=== PATIENT | male | born 1955 | race Caucasian/White ===

== ENCOUNTER 2017-02-21 10:36 | Emergency (ER) | payer MEDICAID ==
[~2017-02-21] VITALS: Ht 175.3 cm; Wt 63.5 kg
[2017-02-21 10:36] VITALS: BP_SYST 136
--- NOTE | 2017-02-21 10:38 | NUR ---
Patient triaged and placed in waiting room. VSS and patient appears in no acute distress at this time. Accompanied by SELF, awaiting available bed, and MD notified of need for MSE.
--- NOTE | 2017-02-21 11:56 | NUR ---
Patient to ER bed 7 to gown for evaluation. Side rails up. Report given to Margaret GOMEZ.
--- NOTE | 2017-02-21 12:20 | NUR ---
ER at bedside examining patient.
--- NOTE | 2017-02-21 12:26 | NUR ---
Pt complains of right ear pain for the past 3 weeks with muffled hearing, pt states no discharge, fever or n/v. Pt is able to hear but has difficulty with hearing. No other injuries/complaints per pt or noted.
--- NOTE | 2017-02-21 12:40 | NUR ---
Patient given written and verbal discharge instructions and verbalizes understanding. ER MD discussed with patient the results and treatment provided. Patient in stable condition. ID arm band removed. Rx of bactrim given. Patient educated on pain management and to follow up with PMD. Pain Scale 2. Opportunity for questions provided and answered.
[2017-02-21 12:42] VITALS: BP_SYST 130
== END 2017-02-21 12:42 | disposition home or self-care (01) ==
LOC: SED 10:36
DX: H66.91 Otitis media, unspecified, right ear (principal); Z88.0 Allergy status to penicillin
CPT/HCPCS: 99283

== ENCOUNTER 2018-01-02 16:07 | Emergency (ER) | payer MEDICAID ==
[~2018-01-02] VITALS: Ht 175.3 cm; Wt 70.3 kg
[2018-01-02 16:13] VITALS: BP_SYST 149
[2018-01-02 16:57] LABS: BASOPHILS # (AUTO) 0.1 K/uL (0.0-0.2); BASOPHILS % (AUTO) 1.1 % (0.0-2.0); EOSINOPHILS # (AUTO) 0.1 K/uL (0.0-0.4); EOSINOPHILS % (AUTO) 1.5 % (0.0-4.0); HEMATOCRIT 46.4 % (36-54); HEMOGLOBIN 15.2 g/dL (14.0-18.0); LYMPHOCYTES % (AUTO) 32.2 % (20.5-51.5); MEAN CORPUSCULAR HEMOGLOBIN 30 pg (27-31); MEAN CORPUSCULAR HGB CONC 33 % (32-36); MEAN CORPUSCULAR VOLUME 91 fL (79.0-98.0); MONOCYTES # (AUTO) 0.4 K/uL (0.0-1.0); MONOCYTES % (AUTO) 7.1 % (1.7-9.3); NEUTROPHILS # (AUTO) 3.6 K/uL (1.8-7.7); NEUTROPHILS % (AUTO) 58.1 % (40.0-70.0); PLATELET COUNT (AUTO) 271 K/uL (130-430); RED BLOOD CELL COUNT(AUTO) 5.11 MIL/uL (4.2-6.2); RED CELL DISTRIBUTION WIDTH 15.5 % (9.0-15.0); WHITE BLOOD COUNT (AUTO) 6.2 K/uL (4.8-10.8)
[2018-01-02 17:05] LABS: CALCIUM 9.1 mg/dL (8.4-11.0); CREATININE 1.54 mg/dL (0.55-1.30); POTASSIUM 4.6 mmol/L (3.5-5.1)
[2018-01-02 17:08] LABS: INR 1.1 (0.80-1.20); PROTHROMBIN TIME 11.6 SECS (9.5-12.5)
[2018-01-02 17:09] LABS: ALBUMIN 3.3 g/dL (3.4-4.8); TOTAL BILIRUBIN 0.4 mg/dL (0.0-1.0)
[2018-01-02 18:11] VITALS: BP_SYST 138
== END 2018-01-02 18:11 | disposition home or self-care (01) ==
LOC: SED 16:07
DX: S96.912A Strain of unspecified muscle and tendon at ankle and foot level, left foot, initial encounter (principal); Z88.0 Allergy status to penicillin; X58.XXXA Exposure to other specified factors, initial encounter; Y93.89 Activity, other specified; Y92.89 Other specified places as the place of occurrence of the external cause; Y99.8 Other external cause status
CPT/HCPCS: 36415; 73552; 80053; 85025; 85610-TC; 85730-TC; 93971; 99285

== ENCOUNTER 2019-02-08 12:26 | Emergency (ER) | payer MEDICAID ==
[~2019-02-08] VITALS: Ht 175.3 cm; Wt 74.8 kg
[2019-02-08 12:33] VITALS: BP_SYST 192
--- NOTE | 2019-02-08 12:33 | NUR ---
Placed in room 07 . Placed on groundwater monitoring technician, blood pressure machine and pulse oximeter. To gown for exam. Side rails up. Report given to Margaret GOMEZ.
--- NOTE | 2019-02-08 12:38 | NUR ---
Patient arrived in the ED c/o right flank pain, chills, dysuria, cloudy urine for 3 days now. Negative for hematuria and fevers. Patient is alert and oriented to name, time, place and event. VS showed elevated BP and tachycardia, pain severity 710 - Took Ibuprofen 800mg at 1215 today. Patient denied any signs and symptoms of respiratory distress at this time. Patient is sitting up in bed, awake and alert, speaking in full sentences. Instructed patient to notify ED staff if symptoms worsen while waiting to be seen by a provider. Patient verbalized understanding.
--- NOTE | 2019-02-08 12:40 | NUR ---
Urine specimen collected and dropped off at the lab.
--- NOTE | 2019-02-08 12:45 | NUR ---
ER Dr. Stephens at bedside examining patient.
[2019-02-08] MEDS ORDERED: NACL 0.9% 1,000 ML IV ONE (12:48)
[2019-02-08] MEDS ORDERED: ONDANSETRON HCL 4 MG/2 ML VIAL IVP ONE (13:00)
[2019-02-08] MEDS ORDERED: KETOROLAC TROMETHAMINE 30 MG VIAL IVP ONE (13:00)
--- NOTE | 2019-02-08 13:15 | NUR ---
# 20 gauge angiocath placed to LAC. Use of asceptic technique. Opsite placed over site. Blood return noted. Blood for lab drawn from site. Flushed with 10 cc of normal saline. No evidence of infiltration noted. Patient tolerated well.
--- NOTE | 2019-02-08 13:20 | NUR ---
Patient is off the unit for CT. Patient is in stable condition.
[2019-02-08 13:23] LABS: BASOPHILS # (AUTO) 0.1 K/uL (0.0-0.2); BASOPHILS % (AUTO) 0.4 % (0.0-2.0); EOSINOPHILS % (AUTO) 0.3 % (0.0-4.0); HEMATOCRIT 43.9 % (36-54); HEMOGLOBIN 15.3 g/dL (14.0-18.0); LYMPHOCYTES # (AUTO) 1.1 K/uL (1.0-5.5); LYMPHOCYTES % (AUTO) 7.3 % (20.5-51.5); MEAN CORPUSCULAR HEMOGLOBIN 33 pg (27-31); MEAN CORPUSCULAR HGB CONC 35 % (32-36); MEAN CORPUSCULAR VOLUME 94 fL (79.0-98.0); MONOCYTES # (AUTO) 0.8 K/uL (0.0-1.0); NEUTROPHILS # (AUTO) 13.4 K/uL (1.8-7.7); PLATELET COUNT (AUTO) 245 K/uL (130-430); RED BLOOD CELL COUNT(AUTO) 4.67 MIL/uL (4.2-6.2); WHITE BLOOD COUNT (AUTO) 15.4 K/uL (4.8-10.8)
[2019-02-08 13:25] LABS: BILIRUBIN,URINE NEGATIVE (NEGATIVE); BLOOD, URINE 3+ (NEGATIVE); CLARITY/URINE TURBID (CLEAR); COLOR,URINE YELLOW (YELLOW); GLUCOSE,URINE NEGATIVE (NEGATIVE); KETONES,URINE NEGATIVE (NEGATIVE); LEUKOCYTE ESTERASE ,URINE 3+ (NEGATIVE); NITRITE, URINE POSITIVE (NEGATIVE); PH,URINE 6.5 (5.0-8.0); PROTEIN URINE 2+ (NEGATIVE)
--- NOTE | 2019-02-08 13:46 | NUR ---
Patient is resting comfortably in bed. Respirations even and unlabored.
--- NOTE | 2019-02-08 13:51 | NUR ---
Patient stated 0/10 pain right now, hold off on Toradol 30mg IVP per Dr. Stephens. Will reassess later. Ibuprofen 800mg taken at 1145 today per patient.
[2019-02-08 14:01] LABS: BACTERIA,URINE MANY /HPF (None Seen); RBC,URINE 20-50 /HPF (0-3); WBC,URINE 50-80 /HPF (0-3)
[2019-02-08] MEDS ORDERED: NOR10 PO (14:02)
[2019-02-08] MEDS ORDERED: BICT1TAB PO (14:02)
--- NOTE | 2019-02-08 14:03 | NUR ---
Medication reconciliation completed with information provided by patient. Any prior medication reconciliation on file was reviewed and corrected.
--- NOTE | 2019-02-08 14:06 | NUR ---
Full code per patient. Patient belonging list completed.
[2019-02-08] MEDS ORDERED: DOXYCYCLINE HYCLATE 100 MG CAPSULE PO ONE (14:15)
--- NOTE | 2019-02-08 14:40 | NUR ---
Administered Vibramycin 100mg PO as ordered by Dr. Stephens. Patient tolerated the medication well.
[2019-02-08 14:47] VITALS: BP_SYST 192
--- NOTE | 2019-02-08 14:48 | NUR ---
Patient given written and verbal discharge instructions and verbalizes understanding. ER MD discussed with patient the results and treatment provided. Patient in stable condition. ID arm band removed. IV catheter removed intact and dressing applied, no active bleeding. Rx of Vibramycin 100mg given. Patient educated on pain management and to follow up with PMD. Pain Scale 0/10. Opportunity for questions provided and answered. Medication side effect fact sheet provided.
--- NOTE | 2019-02-11 07:28 | NUR ---
RECEIVED +URINE CULTURE FROM LAB AND DISCUSSED CASE WITH DR PACE. NO FURTHER ACTIONS NEEDED PER DR PACE
== END 2019-02-08 14:48 | disposition home or self-care (01) ==
LOC: SED 12:26
DX: S39.011A Strain of muscle, fascia and tendon of abdomen, initial encounter (principal); N39.0 Urinary tract infection, site not specified; K42.9 Umbilical hernia without obstruction or gangrene; Z88.0 Allergy status to penicillin; X50.9XXA Other and unspecified overexertion or strenuous movements or postures, initial encounter; Y93.89 Activity, other specified; Y92.89 Other specified places as the place of occurrence of the external cause; Y99.8 Other external cause status
CPT/HCPCS: 36415; 74176; 81000; 85025; 87040; 87086; 87186; 99284; J7030

== ENCOUNTER 2021-10-20 16:37 | Inpatient (IN) | payer MEDICAID ==
[~2021-10-20] VITALS: Ht 175.3 cm; Wt 93.4 kg
[~2021-10-20 16:37] MED LIST: BICT1TAB PO; NOR10 PO
[2021-10-20 16:46] VITALS: BP_SYST 125
[2021-10-20] MEDS ORDERED: iohexoL 350 mgI/mL, 100 ML INFUS..BTL IV ONE (17:51)
[2021-10-20 18:28] LABS: BASOPHILS # (AUTO) 0.1 K/uL (0.0-0.2); BASOPHILS % (AUTO) 1.8 % (0.0-2.0); EOSINOPHILS # (AUTO) 0.1 K/uL (0.0-0.4); EOSINOPHILS % (AUTO) 1.4 % (0.0-4.0); HEMATOCRIT 43.4 % (36-54); HEMOGLOBIN 14.8 g/dL (14.0-18.0); LYMPHOCYTES # (AUTO) 1.6 K/uL (1.0-5.5); LYMPHOCYTES % (AUTO) 26.3 % (20.5-51.5); MEAN CORPUSCULAR HEMOGLOBIN 31 pg (27-31); MEAN CORPUSCULAR HGB CONC 34 % (32-36); MEAN CORPUSCULAR VOLUME 92 fL (79.0-98.0); MONOCYTES # (AUTO) 0.5 K/uL (0.0-1.0); MONOCYTES % (AUTO) 8.6 % (1.7-9.3); NEUTROPHILS # (AUTO) 3.8 K/uL (1.8-7.7); NEUTROPHILS % (AUTO) 61.9 % (40.0-70.0); PLATELET COUNT (AUTO) 189 K/uL (130-430); RED BLOOD CELL COUNT(AUTO) 4.71 MIL/uL (4.2-6.2); RED CELL DISTRIBUTION WIDTH 16.2 % (9.0-15.0); WHITE BLOOD COUNT (AUTO) 6.2 K/uL (4.8-10.8)
[2021-10-20 18:41] LABS: ANION GAP 13 (5-15); CALCIUM 9.4 mg/dL (8.4-11.0); CHLORIDE 102 mmol/L (98-107); CREATININE 0.92 mg/dL (0.55-1.30); GLUCOSE 99 mg/dL (70-99); POTASSIUM 3.4 mmol/L (3.5-5.1); SODIUM SERUM 135 mmol/L (136-145); UREA NITROGEN, BLOOD 23 mg/dL (8-21)
[2021-10-20 18:44] LABS: GFR AFRICAN AMERICAN 107 mL/min (>90)
[2021-10-20] MEDS ORDERED: NITROGLYCERIN 0.4 MG TAB.SUBL SL ONE (18:45)
[2021-10-20] MEDS ORDERED: MAGNESIUM SULFATE/D5W 100 ML IV ONE (18:45)
[2021-10-20] MEDS ORDERED: FUROSEMIDE 40 MG/4 ML VIAL IVP ONE (18:45)
[2021-10-20 18:49] LABS: ALANINE AMINOTRANSFERASE 22 U/L (12-78); ALBUMIN 3.1 g/dL (3.4-4.8); ASPARTATE AMINOTRANSFERASE 20 U/L (10-37); TOTAL BILIRUBIN 1.4 mg/dL (0.0-1.0)
[2021-10-20 18:50] LABS: INR 1.3 (0.80-1.20); PROTHROMBIN TIME 12.7 SECS (9.5-12.5)
[2021-10-20] MEDS ORDERED: HYDR12.55 PO (19:03)
[2021-10-20] MEDS ORDERED: BICT1TAB3 PO (19:03)
[2021-10-20] MEDS ORDERED: IPRATROPIUM/ALBUTEROL SULFATE 3 ML AMPUL.NEB (DUONEB) INH ONE (19:45)
[2021-10-20 21:48] LABS: BILIRUBIN,URINE NEGATIVE (NEGATIVE); BLOOD, URINE NEGATIVE (NEGATIVE); CLARITY/URINE CLEAR (CLEAR); COLOR,URINE YELLOW (YELLOW); GLUCOSE,URINE NEGATIVE (NEGATIVE); KETONES,URINE NEGATIVE (NEGATIVE); LEUKOCYTE ESTERASE ,URINE NEGATIVE (NEGATIVE); NITRITE, URINE NEGATIVE (NEGATIVE); PH,URINE 5.5 (5.0-8.0); PROTEIN URINE NEGATIVE (NEGATIVE)
[2021-10-20 23:53] VITALS: BP_SYST 135
[2021-10-21] VITALS: BP_SYST 127
[2021-10-21 08:00] VITALS: BP_SYST 108; BP_SYST 128
[2021-10-21] MEDS ORDERED: ONDANSETRON HCL 4 MG/2 ML VIAL IVP PRN (08:45)
[2021-10-21] MEDS ORDERED: NALOXONE HCL 0.4 MG/ML AMP (NARCAN) IVP PRN ×2 (08:45)
[2021-10-21] MEDS ORDERED: HYDROcodone/ACETAMIN 5-325 MG TAB (NORCO/ VICODIN) PO PRN (08:45)
[2021-10-21] MEDS ORDERED: ACETAMINOPHEN 325 MG TABLET PO PRN (08:45)
[2021-10-21] MEDS ORDERED: amLODIPine BESYLATE 5 MG TABLET PO SCH (09:00)
[2021-10-21] MEDS ORDERED: HYDROCHLOROTHIAZIDE 12.5 MG CAPSULE (HCTZ) PO SCH ×2 (09:00→12:41)
[2021-10-21] MEDS: FUROSEMIDE 20 MG/2 ML VIAL IVP SCH ×2 (09:34→21:51)
[2021-10-21 12:15] VITALS: BP_SYST 119
[2021-10-21] MEDS: NORMAL SALINE 5 ML DISP.SYRIN IVF SCH ×2 (14:00→23:11)
[2021-10-21 16:00] VITALS: BP_SYST 132
[2021-10-21 20:00] VITALS: BP_SYST 115
[2021-10-21] MEDS ORDERED: CARVEDILOL 6.25 MG TABLET (COREG) PO SCH (22:49)
[2021-10-21] MEDS ORDERED: CARVEDILOL 6.25 MG TABLET (COREG) ONE (23:09)
[2021-10-22] MEDS: LORazepam 2 MG/ML VIAL IVP PRN ×2 (03:02→22:45)
[2021-10-22 07:05] LABS: BASOPHILS % (AUTO) 0.4 % (0.0-2.0); EOSINOPHILS # (AUTO) 0.2 K/uL (0.0-0.4); EOSINOPHILS % (AUTO) 2.2 % (0.0-4.0); HEMATOCRIT 42.7 % (36-54); HEMOGLOBIN 14.5 g/dL (14.0-18.0); LYMPHOCYTES # (AUTO) 1.1 K/uL (1.0-5.5); LYMPHOCYTES % (AUTO) 13.8 % (20.5-51.5); MEAN CORPUSCULAR HEMOGLOBIN 31 pg (27-31); MEAN CORPUSCULAR HGB CONC 34 % (32-36); MEAN CORPUSCULAR VOLUME 92 fL (79.0-98.0); MONOCYTES # (AUTO) 0.5 K/uL (0.0-1.0); MONOCYTES % (AUTO) 6.1 % (1.7-9.3); NEUTROPHILS % (AUTO) 77.5 % (40.0-70.0); PLATELET COUNT (AUTO) 192 K/uL (130-430); RED BLOOD CELL COUNT(AUTO) 4.64 MIL/uL (4.2-6.2); WHITE BLOOD COUNT (AUTO) 7.7 K/uL (4.8-10.8)
[2021-10-22 07:28] LABS: CALCIUM 8.8 mg/dL (8.4-11.0); CREATININE 1.18 mg/dL (0.55-1.30); PHOSPHORUS 3.9 mg/dL (2.7-4.5); POTASSIUM 3.6 mmol/L (3.5-5.1)
[2021-10-22 07:52] VITALS: BP_SYST 101
[2021-10-22 08:00] VITALS: BP_SYST 107
[2021-10-22] MEDS: NORMAL SALINE 5 ML DISP.SYRIN IVF SCH ×3 (08:00→22:00)
[2021-10-22] MEDS: CARVEDILOL 12.5 MG TABLET (COREG) PO SCH ×2 (08:46→21:06)
[2021-10-22] MEDS: APIXABAN 2.5 MG TABLET PO SCH ×2 (08:48→21:08)
[2021-10-22] MEDS: FUROSEMIDE 20 MG/2 ML VIAL IVP SCH ×2 (08:49→21:07)
[2021-10-22 09:21] LABS: BARBITURATE, URINE NEGATIVE (NEG <=200)
[2021-10-22 09:22] LABS: BENZODIAZEPINE, URINE NEGATIVE (NEG <=150); CANNABINOID, URINE NEGATIVE (NEG <=50); COCAINE, URINE NEGATIVE (NEG <=150); METHAMPHETAMINES SCREEN,URINE POSITIVE (NEG <=500); OPIATE, URINE NEGATIVE (NEG <=100); PHENCYCLIDINE SCREEN,URINE NEGATIVE (NEG <=25); UR TRICYCLIC ANTIDEPRESSANTS NEGATIVE (NEG <=300); URINE AMPHETAMINE POSITIVE (NEG <=500); URINE METHADONE NEGATIVE (NEG <=200); URINE OXYCODONE SCREEN NEGATIVE (NEG <=100); URINE PROPOXYPHENE SCREEN NEGATIVE (NEG <=300)
[2021-10-22 12:00] VITALS: BP_SYST 106
[2021-10-22 20:00] VITALS: BP_SYST 108; BP_SYST 115
[2021-10-23] MEDS: LORazepam 2 MG/ML VIAL IVP PRN ×2 (05:21→22:00)
[2021-10-23] MEDS: NORMAL SALINE 5 ML DISP.SYRIN IVF SCH ×3 (06:22→22:02)
[2021-10-23 07:45] VITALS: BP_SYST 106
[2021-10-23 08:25] VITALS: BP_SYST 106
[2021-10-23 09:04] LABS: BASOPHILS % (AUTO) 0.5 % (0.0-2.0); EOSINOPHILS # (AUTO) 0.2 K/uL (0.0-0.4); EOSINOPHILS % (AUTO) 2.9 % (0.0-4.0); HEMATOCRIT 42.6 % (36-54); HEMOGLOBIN 14.5 g/dL (14.0-18.0); LYMPHOCYTES # (AUTO) 1.4 K/uL (1.0-5.5); MEAN CORPUSCULAR HEMOGLOBIN 31 pg (27-31); MEAN CORPUSCULAR HGB CONC 34 % (32-36); MEAN CORPUSCULAR VOLUME 92 fL (79.0-98.0); MONOCYTES # (AUTO) 0.4 K/uL (0.0-1.0); MONOCYTES % (AUTO) 7.5 % (1.7-9.3); NEUTROPHILS # (AUTO) 3.9 K/uL (1.8-7.7); NEUTROPHILS % (AUTO) 66.1 % (40.0-70.0); PLATELET COUNT (AUTO) 200 K/uL (130-430); RED BLOOD CELL COUNT(AUTO) 4.63 MIL/uL (4.2-6.2); RED CELL DISTRIBUTION WIDTH 15.8 % (9.0-15.0); WHITE BLOOD COUNT (AUTO) 5.9 K/uL (4.8-10.8)
[2021-10-23] MEDS: APIXABAN 2.5 MG TABLET PO SCH ×2 (09:04→20:29)
[2021-10-23] MEDS: FUROSEMIDE 20 MG/2 ML VIAL IVP SCH ×2 (09:05→20:30)
[2021-10-23] MEDS: CARVEDILOL 12.5 MG TABLET (COREG) PO SCH ×2 (09:06→20:28)
[2021-10-23 09:20] LABS: ALBUMIN 3.1 g/dL (3.4-4.8); CALCIUM 8.9 mg/dL (8.4-11.0); CREATININE 1.34 mg/dL (0.55-1.30); POTASSIUM 3.8 mmol/L (3.5-5.1); TOTAL BILIRUBIN 1.4 mg/dL (0.0-1.0)
[2021-10-23 12:00] VITALS: BP_SYST 112
[2021-10-23] MEDS: HYDROcodone/ACETAMIN 10-325 MG TAB PO PRN (13:23)
[2021-10-23 16:52] VITALS: BP_SYST 108
[2021-10-23 20:01] VITALS: BP_SYST 105
[2021-10-24] VITALS: BP_SYST 96
[2021-10-24] MEDS: NORMAL SALINE 5 ML DISP.SYRIN IVF SCH ×3 (05:10→21:01)
[2021-10-24 07:48] LABS: CALCIUM 9.1 mg/dL (8.4-11.0); CREATININE 1.24 mg/dL (0.55-1.30); PHOSPHORUS 4.3 mg/dL (2.7-4.5); POTASSIUM 3.5 mmol/L (3.5-5.1)
[2021-10-24 07:49] LABS: BASOPHILS % (AUTO) 0.4 % (0.0-2.0); EOSINOPHILS # (AUTO) 0.1 K/uL (0.0-0.4); EOSINOPHILS % (AUTO) 1.3 % (0.0-4.0); HEMOGLOBIN 14.7 g/dL (14.0-18.0); LYMPHOCYTES # (AUTO) 1.1 K/uL (1.0-5.5); LYMPHOCYTES % (AUTO) 19.1 % (20.5-51.5); MEAN CORPUSCULAR HEMOGLOBIN 31 pg (27-31); MEAN CORPUSCULAR HGB CONC 34 % (32-36); MEAN CORPUSCULAR VOLUME 92 fL (79.0-98.0); MONOCYTES # (AUTO) 0.4 K/uL (0.0-1.0); MONOCYTES % (AUTO) 6.9 % (1.7-9.3); NEUTROPHILS # (AUTO) 4.3 K/uL (1.8-7.7); NEUTROPHILS % (AUTO) 72.3 % (40.0-70.0); PLATELET COUNT (AUTO) 214 K/uL (130-430); RED BLOOD CELL COUNT(AUTO) 4.67 MIL/uL (4.2-6.2); RED CELL DISTRIBUTION WIDTH 16.2 % (9.0-15.0); WHITE BLOOD COUNT (AUTO) 5.9 K/uL (4.8-10.8)
[2021-10-24 08:00] VITALS: BP_SYST 121
[2021-10-24] MEDS ORDERED: FUROSEMIDE 40 MG/4 ML VIAL IVP SCH (09:00)
[2021-10-24] MEDS: APIXABAN 2.5 MG TABLET PO SCH ×2 (09:55→20:26)
[2021-10-24] MEDS: CARVEDILOL 12.5 MG TABLET (COREG) PO SCH ×2 (09:57→20:27)
[2021-10-24] MEDS: LORazepam 2 MG/ML VIAL IVP PRN ×2 (10:31→20:26)
[2021-10-24 12:00] VITALS: BP_SYST 119
[2021-10-24] MEDS: HYDROcodone/ACETAMIN 10-325 MG TAB PO PRN (12:10)
[2021-10-24 17:00] VITALS: BP_SYST 115
[2021-10-24] MEDS ORDERED: POTASSIUM CHLORIDE 10 MEQ TAB.PRT.SR PO ONE (18:00)
[2021-10-24 20:00] VITALS: BP_SYST 110
[2021-10-25] VITALS (7 sets, daily range): BP systolic 115–130
[2021-10-25] MEDS: LORazepam 2 MG/ML VIAL IVP PRN ×4 (00:44→21:21)
[2021-10-25] MEDS ORDERED: LORazepam 2 MG/ML VIAL IVP ONE (03:15)
[2021-10-25] MEDS: NORMAL SALINE 5 ML DISP.SYRIN IVF SCH ×2 (05:04→21:24)
[2021-10-25] MEDS: ALBUTEROL SULFATE 0.083% 2.5 MG/3 ML VIAL.NEB INH SCH ×6 (07:00→23:57)
[2021-10-25] MEDS ORDERED: FUROSEMIDE 40 MG/4 ML VIAL IVP SCH (09:00)
[2021-10-25] MEDS: CARVEDILOL 12.5 MG TABLET (COREG) PO SCH ×2 (09:39→20:17)
[2021-10-25] MEDS: APIXABAN 2.5 MG TABLET PO SCH ×2 (09:41→20:18)
[2021-10-25 11:24] LABS: BASOPHILS % (AUTO) 0.4 % (0.0-2.0); EOSINOPHILS % (AUTO) 0.4 % (0.0-4.0); HEMATOCRIT 44.6 % (36-54); HEMOGLOBIN 15.2 g/dL (14.0-18.0); LYMPHOCYTES # (AUTO) 1.2 K/uL (1.0-5.5); LYMPHOCYTES % (AUTO) 17.1 % (20.5-51.5); MEAN CORPUSCULAR HEMOGLOBIN 31 pg (27-31); MEAN CORPUSCULAR HGB CONC 34 % (32-36); MEAN CORPUSCULAR VOLUME 92 fL (79.0-98.0); MONOCYTES # (AUTO) 0.7 K/uL (0.0-1.0); MONOCYTES % (AUTO) 9.5 % (1.7-9.3); NEUTROPHILS # (AUTO) 5.3 K/uL (1.8-7.7); NEUTROPHILS % (AUTO) 72.6 % (40.0-70.0); PLATELET COUNT (AUTO) 211 K/uL (130-430); RED BLOOD CELL COUNT(AUTO) 4.84 MIL/uL (4.2-6.2); RED CELL DISTRIBUTION WIDTH 15.6 % (9.0-15.0); WHITE BLOOD COUNT (AUTO) 7.3 K/uL (4.8-10.8)
[2021-10-25 11:33] LABS: CALCIUM 9.3 mg/dL (8.4-11.0); CREATININE 1.41 mg/dL (0.55-1.30); POTASSIUM 4.1 mmol/L (3.5-5.1)
[2021-10-25 11:39] LABS: ALBUMIN 3.3 g/dL (3.4-4.8); PHOSPHORUS 4.5 mg/dL (2.7-4.5); TOTAL BILIRUBIN 1.7 mg/dL (0.0-1.0)
[2021-10-25] MEDS: HYDROcodone/ACETAMIN 10-325 MG TAB PO PRN (23:44)
[2021-10-26] MEDS: LORazepam 2 MG/ML VIAL IVP PRN (01:58)
[2021-10-26] MEDS: ALBUTEROL SULFATE 0.083% 2.5 MG/3 ML VIAL.NEB INH SCH ×6 (03:00→23:57)
[2021-10-26 04:00] VITALS: BP_SYST 130
[2021-10-26] MEDS: NORMAL SALINE 5 ML DISP.SYRIN IVF SCH ×2 (05:33→21:26)
[2021-10-26] MEDS: FUROSEMIDE 40 MG/4 ML VIAL IVP SCH (08:55)
[2021-10-26] MEDS: CARVEDILOL 12.5 MG TABLET (COREG) PO SCH ×2 (08:56→21:23)
[2021-10-26 08:57] LABS: BASOPHILS % (AUTO) 0.5 % (0.0-2.0); EOSINOPHILS # (AUTO) 0.1 K/uL (0.0-0.4); EOSINOPHILS % (AUTO) 0.7 % (0.0-4.0); HEMOGLOBIN 14.5 g/dL (14.0-18.0); MEAN CORPUSCULAR HEMOGLOBIN 32 pg (27-31); MEAN CORPUSCULAR HGB CONC 34 % (32-36); MEAN CORPUSCULAR VOLUME 93 fL (79.0-98.0); MONOCYTES # (AUTO) 1.2 K/uL (0.0-1.0); MONOCYTES % (AUTO) 14.3 % (1.7-9.3); NEUTROPHILS # (AUTO) 5.1 K/uL (1.8-7.7); NEUTROPHILS % (AUTO) 60.5 % (40.0-70.0); PLATELET COUNT (AUTO) 214 K/uL (130-430); RED BLOOD CELL COUNT(AUTO) 4.61 MIL/uL (4.2-6.2); RED CELL DISTRIBUTION WIDTH 16.1 % (9.0-15.0); WHITE BLOOD COUNT (AUTO) 8.4 K/uL (4.8-10.8)
[2021-10-26] MEDS: APIXABAN 2.5 MG TABLET PO SCH ×2 (09:01→21:24)
[2021-10-26] MEDS: BIKTARVY PO SCH (09:04)
[2021-10-26 09:08] LABS: ALBUMIN 3.1 g/dL (3.4-4.8); CALCIUM 9.1 mg/dL (8.4-11.0); CREATININE 1.73 mg/dL (0.55-1.30); PHOSPHORUS 5.4 mg/dL (2.7-4.5); POTASSIUM 4.9 mmol/L (3.5-5.1); TOTAL BILIRUBIN 1.8 mg/dL (0.0-1.0)
[2021-10-26 11:27] VITALS: BP_SYST 131
[2021-10-26 15:36] VITALS: BP_SYST 121
[2021-10-26 20:35] VITALS: BP_SYST 113
[2021-10-27] VITALS (14 sets, daily range): BP systolic 81–133
[2021-10-27] MEDS: ALBUTEROL SULFATE 0.083% 2.5 MG/3 ML VIAL.NEB INH SCH ×6 (02:50→22:45)
[2021-10-27] MEDS: NORMAL SALINE 5 ML DISP.SYRIN IVF SCH ×2 (06:38→10:06)
[2021-10-27 06:53] LABS: BASOPHILS % (AUTO) 0.5 % (0.0-2.0); EOSINOPHILS % (AUTO) 0.6 % (0.0-4.0); HEMATOCRIT 42.5 % (36-54); HEMOGLOBIN 14.6 g/dL (14.0-18.0); LYMPHOCYTES # (AUTO) 1.3 K/uL (1.0-5.5); LYMPHOCYTES % (AUTO) 16.8 % (20.5-51.5); MEAN CORPUSCULAR HEMOGLOBIN 32 pg (27-31); MEAN CORPUSCULAR HGB CONC 34 % (32-36); MEAN CORPUSCULAR VOLUME 92 fL (79.0-98.0); MONOCYTES # (AUTO) 0.7 K/uL (0.0-1.0); MONOCYTES % (AUTO) 9.2 % (1.7-9.3); NEUTROPHILS # (AUTO) 5.5 K/uL (1.8-7.7); NEUTROPHILS % (AUTO) 72.9 % (40.0-70.0); PLATELET COUNT (AUTO) 215 K/uL (130-430); RED BLOOD CELL COUNT(AUTO) 4.62 MIL/uL (4.2-6.2); RED CELL DISTRIBUTION WIDTH 16.3 % (9.0-15.0); WHITE BLOOD COUNT (AUTO) 7.6 K/uL (4.8-10.8)
[2021-10-27 08:09] LABS: CREATININE 1.99 mg/dL (0.55-1.30); PHOSPHORUS 5.2 mg/dL (2.7-4.5); POTASSIUM 3.6 mmol/L (3.5-5.1)
[2021-10-27] MEDS: FUROSEMIDE 40 MG/4 ML VIAL IVP SCH (09:24)
[2021-10-27] MEDS: CARVEDILOL 12.5 MG TABLET (COREG) PO SCH ×2 (09:24→20:55)
[2021-10-27] MEDS: APIXABAN 2.5 MG TABLET PO SCH ×2 (09:34→20:58)
[2021-10-27] MEDS: THIAMINE HCL 100 MG TABLET PO SCH (09:35)
[2021-10-27] MEDS: BIKTARVY PO SCH (10:05)
[2021-10-27] MEDS ORDERED: MIDAZOLAM HCL 5 MG/5 ML VIAL ONE ×2 (11:52→11:55)
[2021-10-27] MEDS ORDERED: VECURONIUM BROMIDE 10 MG/VIAL (NORCURON) IV ONE (14:28)
[2021-10-27] MEDS ORDERED: ROCURONIUM BROMIDE 10 MG/ML (ZEMURON) IV ONE (14:28)
[2021-10-27] MEDS ORDERED: SUCCINYLCHOLINE CHLORIDE 20 MG/ML(QUELICIN) IVP ONE (14:28)
[2021-10-27] MEDS ORDERED: ETOMIDATE 20 MG/ 10 ML VIAL (AMIDATE) IVP ONE (14:28)
[2021-10-27] MEDS ORDERED: NALOXONE HCL 0.4 MG/ML AMP (NARCAN) IVP PRN (14:30)
[2021-10-27] MEDS ORDERED: NOREPINEPHRINE BITARTRATE 4 MG in NS 246 ML IV PRN (14:30)
[2021-10-27] MEDS ORDERED: NOREPINEPHRINE 4 MG/4 ML VIAL IV ONE ×3 (15:09→19:20)
[2021-10-27] MEDS ORDERED: PROPOFOL DRIP 100 ML IV ONE (16:05)
[2021-10-27] MEDS: MIDAZOLAM IN NACL,ISO-OSMOT/PF 100 ML IV PRN (17:42)
[2021-10-27] MEDS: LORazepam 2 MG/ML VIAL IVP PRN (17:49)
[2021-10-27] MEDS: MORPHINE SULFATE IN 0.9 % NACL 100 ML IV PRN (17:52)
[2021-10-27] MEDS ORDERED: COMMUNICATION ORDER XX ONE (19:00)
[2021-10-27 20:19] LABS: CALCIUM 8.8 mg/dL (8.4-11.0); CREATININE 2.38 mg/dL (0.55-1.30)
[2021-10-27] MEDS: NOREPINEPHRINE BITARTRATE 16 MG in NS 234 ML IV PRN (21:02)
[2021-10-27 23:15] LABS: BILIRUBIN,URINE 2+ (NEGATIVE); BLOOD, URINE 3+ (NEGATIVE); CLARITY/URINE SL CLOUDY (CLEAR); COLOR,URINE YELLOW (YELLOW); GLUCOSE,URINE NEGATIVE (NEGATIVE); KETONES,URINE NEGATIVE (NEGATIVE); LEUKOCYTE ESTERASE ,URINE NEGATIVE (NEGATIVE); NITRITE, URINE NEGATIVE (NEGATIVE); PROTEIN URINE 1+ (NEGATIVE)
[2021-10-28] VITALS (33 sets, daily range): BP systolic 57–130
[2021-10-28] MEDS: NORMAL SALINE 5 ML DISP.SYRIN IVF SCH ×2 (00:12→04:48)
[2021-10-28 00:14] LABS: BACTERIA,URINE None Seen /HPF (None Seen)
[2021-10-28] MEDS: NOREPINEPHRINE BITARTRATE 16 MG in NS 234 ML IV PRN ×4 (03:29→23:55)
[2021-10-28] MEDS: ALBUTEROL SULFATE 0.083% 2.5 MG/3 ML VIAL.NEB INH SCH ×6 (03:56→23:45)
[2021-10-28] MEDS: MORPHINE SULFATE IN 0.9 % NACL 100 ML IV PRN ×2 (04:53→17:37)
[2021-10-28 06:28] LABS: BASOPHILS # (AUTO) 0.1 K/uL (0.0-0.2); BASOPHILS % (AUTO) 0.6 % (0.0-2.0); EOSINOPHILS # (AUTO) 0.1 K/uL (0.0-0.4); EOSINOPHILS % (AUTO) 0.5 % (0.0-4.0); HEMATOCRIT 46.3 % (36-54); HEMOGLOBIN 15.8 g/dL (14.0-18.0); LYMPHOCYTES # (AUTO) 2.6 K/uL (1.0-5.5); MEAN CORPUSCULAR HEMOGLOBIN 32 pg (27-31); MEAN CORPUSCULAR HGB CONC 34 % (32-36); MEAN CORPUSCULAR VOLUME 93 fL (79.0-98.0); MONOCYTES # (AUTO) 1.4 K/uL (0.0-1.0); MONOCYTES % (AUTO) 11.1 % (1.7-9.3); NEUTROPHILS # (AUTO) 8.3 K/uL (1.8-7.7); NEUTROPHILS % (AUTO) 66.8 % (40.0-70.0); PLATELET COUNT (AUTO) 337 K/uL (130-430); RED BLOOD CELL COUNT(AUTO) 4.98 MIL/uL (4.2-6.2); RED CELL DISTRIBUTION WIDTH 16.2 % (9.0-15.0)
[2021-10-28 06:34] LABS: ALBUMIN 2.7 g/dL (3.4-4.8); CALCIUM 8.3 mg/dL (8.4-11.0); CREATININE 2.48 mg/dL (0.55-1.30); PHOSPHORUS 6.4 mg/dL (2.7-4.5); POTASSIUM 4.5 mmol/L (3.5-5.1); TOTAL BILIRUBIN 2.8 mg/dL (0.0-1.0)
[2021-10-28 07:57] LABS: WHITE BLOOD COUNT (AUTO) 12.4 K/uL (4.8-10.8)
[2021-10-28] MEDS: CARVEDILOL 12.5 MG TABLET (COREG) PO SCH ×2 (09:09→21:00)
[2021-10-28] MEDS: FUROSEMIDE 40 MG/4 ML VIAL IVP SCH (09:09)
[2021-10-28] MEDS: THIAMINE HCL 100 MG TABLET PO SCH (09:09)
[2021-10-28] MEDS: BIKTARVY PO SCH (09:10)
[2021-10-28] MEDS: APIXABAN 2.5 MG TABLET PO SCH ×2 (09:10→21:00)
[2021-10-28] MEDS ORDERED: VASOPRESSIN 40 UNITS in NS 38 ML IV PRN (10:45)
[2021-10-28] MEDS: D5NS 1,000 ML IV SCH ×2 (10:58→22:31)
[2021-10-28] MEDS: VASOPRESSIN 20 UNITS in NS 99 ML IV PRN (11:09)
[2021-10-28] MEDS ORDERED: LEVOFLOXACIN 250 MG/D5W 50 ML IV SCH (13:00)
[2021-10-28] MEDS ORDERED: VANCOMYCIN HCL 1,000 MG in NS 250 ML IV ONE (14:30)
[2021-10-28] MEDS: METHYLPREDNISOLONE SOD SUCC 40 MG/ML VIAL IVP SCH ×2 (17:32→23:47)
[2021-10-28] MEDS: MIDAZOLAM IN NACL,ISO-OSMOT/PF 100 ML IV PRN (17:34)
[2021-10-28] MEDS: PHENYLEPHRINE HCL 50 MG in NS 245 ML IV PRN (22:30)
[2021-10-29] VITALS (29 sets, daily range): BP systolic 70–121
[2021-10-29] MEDS: ALBUTEROL SULFATE 0.083% 2.5 MG/3 ML VIAL.NEB INH SCH ×3 (03:05→11:27)
[2021-10-29] MEDS: PHENYLEPHRINE HCL 50 MG in NS 245 ML IV PRN (03:51)
[2021-10-29] MEDS: NOREPINEPHRINE BITARTRATE 16 MG in NS 234 ML IV PRN (06:11)
[2021-10-29] MEDS: METHYLPREDNISOLONE SOD SUCC 40 MG/ML VIAL IVP SCH ×2 (06:12→13:43)
[2021-10-29] MEDS ORDERED: NOREPINEPHRINE BITARTRATE 32 MG in D5W 218 ML IV PRN (08:00)
[2021-10-29 09:30] LABS: BASOPHILS # (AUTO) 0.1 K/uL (0.0-0.2); BASOPHILS % (AUTO) 0.3 % (0.0-2.0); HEMATOCRIT 52.1 % (36-54); HEMOGLOBIN 16.7 g/dL (14.0-18.0); LYMPHOCYTES # (AUTO) 2.5 K/uL (1.0-5.5); LYMPHOCYTES % (AUTO) 15.6 % (20.5-51.5); MEAN CORPUSCULAR HEMOGLOBIN 31 pg (27-31); MEAN CORPUSCULAR HGB CONC 32 % (32-36); MEAN CORPUSCULAR VOLUME 97 fL (79.0-98.0); MONOCYTES % (AUTO) 12.1 % (1.7-9.3); NEUTROPHILS # (AUTO) 11.6 K/uL (1.8-7.7); PLATELET COUNT (AUTO) 267 K/uL (130-430); RED BLOOD CELL COUNT(AUTO) 5.36 MIL/uL (4.2-6.2); RED CELL DISTRIBUTION WIDTH 17.8 % (9.0-15.0); WHITE BLOOD COUNT (AUTO) 16.2 K/uL (4.8-10.8)
[2021-10-29] MEDS: D5NS 1,000 ML IV SCH (09:38)
[2021-10-29] MEDS: CARVEDILOL 12.5 MG TABLET (COREG) PO SCH (09:39)
[2021-10-29] MEDS: THIAMINE HCL 100 MG TABLET PO SCH (09:40)
[2021-10-29] MEDS: BIKTARVY PO SCH (09:40)
[2021-10-29 09:41] LABS: CALCIUM 7.7 mg/dL (8.4-11.0); CREATININE 4.54 mg/dL (0.55-1.30)
[2021-10-29 09:52] LABS: ALBUMIN 2.4 g/dL (3.4-4.8); TOTAL BILIRUBIN 3.1 mg/dL (0.0-1.0)
[2021-10-29] MEDS: APIXABAN 2.5 MG TABLET PO SCH (09:56)
[2021-10-29] MEDS: VASOPRESSIN 20 UNITS in NS 99 ML IV PRN (09:59)
[2021-10-29 10:00] LABS: POTASSIUM 6.7 mmol/L (3.5-5.1)
[2021-10-29] MEDS ORDERED: SODIUM POLYSTYRENE SULFONATE 15 GM/60 ML UDBTL PO ONE (11:30)
[2021-10-29] MEDS ORDERED: INSULIN REGULAR, HUMAN 100 UNITS/ML, 10 ML VIAL IV ONE (11:30)
[2021-10-29] MEDS ORDERED: DEXTROSE 50% JECT 50 ML DISP.SYRIN IVP ONE ×2 (11:30→13:30)
[2021-10-29 12:40] LABS: BASOPHILS # (AUTO) 0.1 K/uL (0.0-0.2); BASOPHILS % (AUTO) 0.6 % (0.0-2.0); EOSINOPHILS % (AUTO) 0.1 % (0.0-4.0); HEMATOCRIT 52.2 % (36-54); LYMPHOCYTES # (AUTO) 1.7 K/uL (1.0-5.5); LYMPHOCYTES % (AUTO) 11.8 % (20.5-51.5); MEAN CORPUSCULAR HEMOGLOBIN 31 pg (27-31); MEAN CORPUSCULAR HGB CONC 33 % (32-36); MEAN CORPUSCULAR VOLUME 96 fL (79.0-98.0); MONOCYTES # (AUTO) 0.8 K/uL (0.0-1.0); MONOCYTES % (AUTO) 5.6 % (1.7-9.3); NEUTROPHILS # (AUTO) 11.6 K/uL (1.8-7.7); NEUTROPHILS % (AUTO) 81.9 % (40.0-70.0); PLATELET COUNT (AUTO) 273 K/uL (130-430); RED BLOOD CELL COUNT(AUTO) 5.42 MIL/uL (4.2-6.2); RED CELL DISTRIBUTION WIDTH 17.7 % (9.0-15.0); WHITE BLOOD COUNT (AUTO) 14.1 K/uL (4.8-10.8)
[2021-10-29 13:00] LABS: ALBUMIN 2.3 g/dL (3.4-4.8); CALCIUM 10.6 mg/dL (8.4-11.0); CREATININE 4.82 mg/dL (0.55-1.30)
[2021-10-29] MEDS ORDERED: CALCIUM GLUCONATE 1 GM in NS 100 ML IV ONE (13:00)
[2021-10-29] MEDS ORDERED: SODIUM BICARBONATE 8.4% JECT 150 MEQ in D5W 1,000 ML IVP SCH (13:00)
[2021-10-29] MEDS ORDERED: ALBUTEROL SULFATE 0.083% 2.5 MG/3 ML VIAL.NEB INH ONE (13:30)
[2021-10-29] MEDS ORDERED: SODIUM BICARBONATE 8.4% JECT 50 MEQ in D5W 1,000 ML IVP SCH (13:30)
[2021-10-29] MEDS ORDERED: CALCIUM CHLORIDE 1 GM in NS 100 ML IV ONE (13:30)
[2021-10-29] MEDS ORDERED: INSULIN REGULAR, HUMAN 100 UNITS/ML, 10 ML VIAL IVP ONE (13:30)
[2021-10-29] MEDS ORDERED: VANCOMYCIN HCL 1,000 MG in NS 250 ML IV ONE (14:00)
[2021-10-29 14:20] LABS: POTASSIUM 6.6 mmol/L (3.5-5.1)
[2021-10-29] MEDS ORDERED: EPINEPHrine JECT 0.1 MG/ML SYR IVP ONE (15:02)
[2021-10-29] MEDS ORDERED: ATROPINE SULFATE 1 MG/10 ML SYRINGE IVP ONE (15:02)
[2021-10-29] MEDS ORDERED: SODIUM BICARBONATE 8.4% JECT 50 MEQ/50 ML SYRINGE IVP ONE (15:02)
[2021-10-29] MEDS ORDERED: CALCIUM CHLORIDE 1 GM/10 ML DISP.SYRIN (14 mEq Ca++/SYR) IV ONE (15:02)
== END 2021-10-29 15:00 | DRG 720 ==
LOC: SED 16:37 → STU 21:35 → SIC 10-27 06:28
PROVIDERS: ADMIT Preventive Medicine Preventive Medicine/Occupational Environmental Medicine; ATTEND Preventive Medicine Preventive Medicine/Occupational Environmental Medicine
PROC: 5A09357 Assistance with Respiratory Ventilation, Less than 24 Consecutive Hours, Continuous Positive Airway Pressure (ICD-10-PCS; 2021-10-20)
PROC: 05HY33Z Insertion of Infusion Device into Upper Vein, Percutaneous Approach (ICD-10-PCS; principal; 2021-10-27)
PROC: B54MZZA Ultrasonography of Right Upper Extremity Veins, Guidance (ICD-10-PCS; 2021-10-27)
PROC: 5A0935A Assistance with Respiratory Ventilation, Less than 24 Consecutive Hours, High Flow/Velocity Cannula (ICD-10-PCS; 2021-10-27)
PROC: 5A09357 Assistance with Respiratory Ventilation, Less than 24 Consecutive Hours, Continuous Positive Airway Pressure (ICD-10-PCS; 2021-10-27)
PROC: 5A1945Z Respiratory Ventilation, 24-96 Consecutive Hours (ICD-10-PCS; 2021-10-27)
PROC: 0BH17EZ Insertion of Endotracheal Airway into Trachea, Via Natural or Artificial Opening (ICD-10-PCS; 2021-10-27)
DX: A41.9 Sepsis, unspecified organism (principal); J96.00 Acute respiratory failure, unspecified whether with hypoxia or hypercapnia; R65.21 Severe sepsis with septic shock; J18.9 Pneumonia, unspecified organism; I13.0 Hypertensive heart and chronic kidney disease with heart failure and stage 1 through stage 4 chronic kidney disease, or unspecified chronic kidney disease; E87.3 Alkalosis; N17.9 Acute kidney failure, unspecified; E87.1 Hypo-osmolality and hyponatremia; E83.39 Other disorders of phosphorus metabolism; E83.41 Hypermagnesemia; I50.9 Heart failure, unspecified; I46.9 Cardiac arrest, cause unspecified; R17 Unspecified jaundice; I48.92 Unspecified atrial flutter; J44.0 Chronic obstructive pulmonary disease with (acute) lower respiratory infection; E87.6 Hypokalemia; E11.22 Type 2 diabetes mellitus with diabetic chronic kidney disease; E88.09 Other disorders of plasma-protein metabolism, not elsewhere classified; F15.10 Other stimulant abuse, uncomplicated; Z20.822 Contact with and (suspected) exposure to COVID-19; N18.9 Chronic kidney disease, unspecified; Z79.01 Long term (current) use of anticoagulants; Z79.899 Other long term (current) drug therapy; Z86.73 Personal history of transient ischemic attack (TIA), and cerebral infarction without residual deficits; Z87.891 Personal history of nicotine dependence; Z90.49 Acquired absence of other specified parts of digestive tract; Z88.0 Allergy status to penicillin
CPT/HCPCS: 36415; 36600; 71045; 71275; 76376; 76770; 80048; 80053; 80202; 80307; 81000; 81003; 82533; 82570; 82803-TC; 82962; 83605; 83615; 83735; 83880; 84100; 84302; 84484; 84540; 85025; 85610-TC; 85730-TC; 87040; 87070-TC; 87086; 87205-TC; 92950; 93005; 93306; 93923; 94002; 94003; 94640; 94760; 96374; 96375; 97116-GP; 97530-GP; 99291; G0378; J0171; J0330; J0461; J0610; J1030; J1815; J1940; J1956; J2060; J2250; J2270; J2370; J2405; J2704; J3370; J3490; J7050; J7060; J7613; Q9967